=== PATIENT | male | born 1960 | race Caucasian/White ===

== ENCOUNTER → 2018-02-25 | Outpatient (CLI) | payer SELFPAY ==
--- NOTE | 2018-02-25 12:57 | RADIOLOGY IMAGING REPORT ---
FACILITY: [facility] [place] PATIENT NAME: Jose Casey : 1960 MR: [id number] V: [id number] EXAM DATE: ORDERING PHYSICIAN: JEFF ADAM TECHNOLOGIST: Location: [facility] Patient: Jose Casey : 1960 Visit/Account:[id number] Date of Sevice: 02/25/2018 SHOULDER MIN 2 VIEWS RIGHT HISTORY: Fall Four view examination of the right shoulder. FINDINGS: No acute fracture. The proximal humerus, scapula, clavicle and adjacent right ribs are all well-main tained with no obvious fracture. Glenohumeral joint demonstrates no dislocation. Mild subchondral c ystic changes in the glenoid. AC joint DJD changes noted. IMPRESSION: 1. Negative right shoulder for acute pathology. AC joint and glenoid DJD changes noted. Report Dictated By: Geo Suarez MD at 02/25/2018 12:50 PM Report E-Signed By: Geo Suarez MD at 02/25/2018 12:53 PM WSN:[email or web address]
== END ==
LOC: RAD 10:02
PROVIDERS: ATTEND Nurse Practitioner Family
DX: M25.511 Pain in right shoulder (principal); W19.XXXA Unspecified fall, initial encounter